=== PATIENT | female | born 1965 | race Caucasian/White ===

== ENCOUNTER 2017-10-18 15:44 | Emergency (ER) | payer BC ==
[~2017-10-18] VITALS: Ht 172.7 cm; Wt 68.0 kg
[2017-10-18] MEDS ORDERED: ONDANSETRON 4 MG/2 ML VIAL IV ONE (16:00)
[2017-10-18] MEDS ORDERED: ONDANSETRON 4 MG/2 ML VIAL ONE (16:09)
[2017-10-18 16:26] LABS: BASOPHILS % (AUTO) 0.7 % (0.0-2.0); EOSINOPHILS # (AUTO) 0.1 K/uL (0.0-0.7); EOSINOPHILS % (AUTO) 1.4 % (0.0-7.0); HEMATOCRIT 40.6 % (31.2-41.9); HEMOGLOBIN 13.9 g/dL (10.9-14.3); LYMPHOCYTES # (AUTO) 2.4 K/uL (20.0-40.0); LYMPHOCYTES % (AUTO) 35.3 % (20.5-51.5); MEAN CORPUSCULAR HEMOGLOBIN 31.6 uug (24.7-32.8); MEAN CORPUSCULAR HGB CONC 34 g/dL (32.3-35.6); MEAN CORPUSCULAR VOLUME 92.4 fL (75.5-95.3); MONOCYTES # (AUTO) 0.6 K/uL (2.0-10.0); MONOCYTES % (AUTO) 9.4 % (0.0-11.0); NEUTROPHILS # (AUTO) 3.6 K/uL (1.8-8.9); NEUTROPHILS % (AUTO) 53.2 % (38.5-71.5); PLATELET COUNT (AUTO) 216 K/uL (179-408); RED BLOOD CELL COUNT(AUTO) 4.39 MIL/uL (3.63-4.92); WHITE BLOOD COUNT (AUTO) 6.8 K/uL (3.8-11.8)
[2017-10-18 16:39] LABS: CREATININE 0.8 mg/dL (0.6-1.3); POTASSIUM 3.7 mmol/L (3.5-5.1)
[2017-10-18 16:45] LABS: BILIRUBIN,DIRECT 0.1 mg/dL (0.0-0.2); BILIRUBIN,TOTAL 0.5 mg/dL (0.2-1.0); TOTAL PROTEIN, SERUM 7.9 g/dL (6.4-8.2)
[2017-10-18] MEDS ORDERED: IBUPROFEN 600 MG TABLET PO ONE (17:45)
[2017-10-18] MEDS ORDERED: IBUPROFEN 600 MG TABLET ONE (17:57)
--- NOTE | 2017-10-18 17:57 | NUR ---
Patient discharged to home in stable conditon. Written and verbal after care instructions given. Patient verbalizes understanding of instructions. Stressed follow up or return to ER for worsening s/s.
== END 2017-10-18 18:00 | disposition home or self-care (01) ==
LOC: ER 15:46
DX: R51 Headache (principal); R10.13 Epigastric pain; F41.9 Anxiety disorder, unspecified
CPT/HCPCS: 36415; 70030-TC; 70450; 83690; 85025; 93005; A4663; J2405

== ENCOUNTER 2018-07-15 21:44 | Emergency (ER) | payer BC ==
[~2018-07-15] VITALS: Ht 172.7 cm; Wt 65.8 kg
[2018-07-15] MEDS ORDERED: BENAZEPRIL HCL 40 MG (22:04)
[2018-07-15] MEDS ORDERED: AMLODIPINE BESYLATE 5 MG TAB (22:04)
--- NOTE | 2018-07-15 22:45 | NUR ---
Patient ambulated with stable gait. Speech is clear, speaks in complete sentences. Patient came in for c/o syncopal episode after eating a meal at [employer] at 1700 today. Patient reported after eating her meal, she had symptoms of abdominal cramps and had diarrhea in the restroom. During this episode she passed out in the stall and another female in the restroom called for help. Bruising noted on right eye orbit. Respiratory even and unlabored. No cardiovascular distress noted, all pulses palpable. Patient in bed at lowest position, patient accompanied by daughter bedside. Call light within reach. Fall precautions implemented per protocol.
[2018-07-15] MEDS ORDERED: IV NORMAL SALINE 1000 ML BAG IV ONE (23:30)
[2018-07-15] MEDS ORDERED: ONDANSETRON 4 MG/2 ML VIAL IV ONE (23:30)
[2018-07-15] MEDS ORDERED: KETOROLAC TROMETHAMINE 30 MG INJ IVP ONE (23:30)
[2018-07-15 23:34] LABS: BASOPHILS % (AUTO) 0.5 % (0.0-2.0); EOSINOPHILS # (AUTO) 0.1 K/uL (0.0-0.7); HEMATOCRIT 37.6 % (31.2-41.9); HEMOGLOBIN 12.7 g/dL (10.9-14.3); LYMPHOCYTES # (AUTO) 2.9 K/uL (20.0-40.0); LYMPHOCYTES % (AUTO) 31.7 % (20.5-51.5); MEAN CORPUSCULAR HGB CONC 34 g/dL (32.3-35.6); MEAN CORPUSCULAR VOLUME 91.6 fL (75.5-95.3); MONOCYTES # (AUTO) 0.7 K/uL (2.0-10.0); MONOCYTES % (AUTO) 7.9 % (0.0-11.0); NEUTROPHILS # (AUTO) 5.3 K/uL (1.8-8.9); NEUTROPHILS % (AUTO) 58.9 % (38.5-71.5); PLATELET COUNT (AUTO) 220 K/uL (179-408); RED BLOOD CELL COUNT(AUTO) 4.11 MIL/uL (3.63-4.92)
[2018-07-15] MEDS ORDERED: KETOROLAC TROMETHAMINE 30 MG INJ ONE (23:35)
[2018-07-15] MEDS ORDERED: ONDANSETRON 4 MG/2 ML VIAL ONE (23:35)
[2018-07-15 23:38] LABS: CREATININE 0.6 mg/dL (0.6-1.3); POTASSIUM 3.2 mmol/L (3.5-5.1)
[2018-07-15 23:43] LABS: BILIRUBIN,DIRECT 0.1 mg/dL (0.0-0.2); BILIRUBIN,TOTAL 0.3 mg/dL (0.2-1.0); TOTAL PROTEIN, SERUM 7.3 g/dL (6.4-8.2)
--- NOTE | 2018-07-16 00:35 | NUR ---
Patient transported to CT in stable condition.
--- NOTE | 2018-07-16 01:22 | NUR ---
Patient discharged to home in stable conditon. Written and verbal after care instructions given. Patient verbalizes understanding of instructions. Patient ambulated with stable gait.
[2018-07-16 01:24] VITALS: BP 100/63
== END 2018-07-16 01:24 | disposition home or self-care (01) ==
LOC: ER 21:46
DX: S09.90XA Unspecified injury of head, initial encounter (principal); R55 Syncope and collapse; R19.7 Diarrhea, unspecified; I10 Essential (primary) hypertension; Z79.899 Other long term (current) drug therapy; W01.198A Fall on same level from slipping, tripping and stumbling with subsequent striking against other object, initial encounter; Y93.89 Activity, other specified; Y92.89 Other specified places as the place of occurrence of the external cause; Y99.8 Other external cause status
CPT/HCPCS: 36415; 70486; 80048; 80076; 83690; 85025; 93005; 96374; 96375; 99284; J1885; J2405; A4663; J7030